=== PATIENT | female | born 1995 | race Caucasian/White ===

== ENCOUNTER 2018-03-28 21:37 | Outpatient (CLI) | payer OTHER ==
[2018-03-28] MEDS ORDERED: PRENATAL 19 TA1 EACH PO (21:43)
== END 2018-03-28 22:47 | disposition home or self-care (01) ==
LOC: OBS/DEL 21:37
DX: O26.892 Other specified pregnancy related conditions, second trimester (principal); R10.2 Pelvic and perineal pain; Z34.02 Encounter for supervision of normal first pregnancy, second trimester

== ENCOUNTER 2018-07-19 10:20 | Outpatient (CLI) | payer OTHER ==
[~2018-07-19 10:20] MED LIST: PRENATAL 19 TA1 EACH PO
[2018-07-19] MEDS ORDERED: KEFLEX500 MG PO (19:53)
== END 2018-07-19 20:32 | disposition home or self-care (01) ==
LOC: OBS/DEL 10:20
DX: O23.43 Unspecified infection of urinary tract in pregnancy, third trimester (principal); Z34.03 Encounter for supervision of normal first pregnancy, third trimester

== ENCOUNTER 2018-07-22 01:42 | Inpatient (IN) | payer OTHER ==
[~2018-07-22] VITALS: Ht 147.3 cm; Wt 62.6 kg
[~2018-07-22 01:42] MED LIST changes: +KEFLEX500 MG PO
== END 2018-07-24 18:18 | disposition home or self-care (01) | DRG 807 ==
LOC: OB/GYN 01:42 → LDR 01:42 → OB/GYN 17:34
PROVIDERS: ADMIT Obstetrics & Gynecology
PROC: 10E0XZZ Delivery of Products of Conception, External Approach (ICD-10-PCS; principal; 2018-07-22)
PROC: 0HQ9XZZ Repair Perineum Skin, External Approach (ICD-10-PCS; 2018-07-22)
PROC: 10907ZC Drainage of Amniotic Fluid, Therapeutic from Products of Conception, Via Natural or Artificial Opening (ICD-10-PCS; 2018-07-22)
PROC: 3E033VJ Introduction of Other Hormone into Peripheral Vein, Percutaneous Approach (ICD-10-PCS; 2018-07-22)
PROC: 4A1HXCZ Monitoring of Products of Conception, Cardiac Rate, External Approach (ICD-10-PCS; 2018-07-22)
DX: O70.0 First degree perineal laceration during delivery (principal); Z37.0 Single live birth; Z3A.39 39 weeks gestation of pregnancy